=== PATIENT | male | born 1940 | race Caucasian/White ===

== ENCOUNTER 2018-07-11 08:12 | Inpatient (IN) | payer MEDICARE ==
[2018-07-11] VITALS (19 sets, daily range): BP systolic 97–149; BP diastolic 44–77
[~2018-07-11] VITALS: Ht 172.7 cm; Wt 103.0 kg
[~2018-07-11 08:12] MED LIST: ARICEPT10 MG PO; FEXOFENADINE180 MG PO; LISINOPRIL10 MG PO; METFORMIN500 MG PO; TYLENOL 325MG TAB PO; TYLENOL P1 PO
--- NOTE | 2018-07-11 08:25 | NUR ---
IV INITIATED AND LABS COLLECTED. [address] GIVEN PTS PAIN 10/10 AT THIS TIME.
--- NOTE | 2018-07-11 08:30 | NUR ---
PATIENT TO ROOM VIA WHEELCHAIR AND PHYSICIAN AT BEDSIDE FOR EVAL
--- NOTE | 2018-07-11 08:36 | NUR ---
BP 93/53 AFTER 2ND SL NITRO. PT REPORTS PAIN REMAINS 01/17. MD NOTIFIED.
[2018-07-11 08:43] LABS: HEMATOCRIT 46.5 % (39.0-50.0); HEMOGLOBIN 14.7 g/dl (14.0-18.0); IMMATURE GRANULOCYTES 0.6 % (0.0-5.0); MEAN CELL VOLUME 96.9 fL CALC (80.0-100.0); MEAN CORPUSCULAR HGB 30.6 pG CALC (26.0-32.0); MEAN CORPUSCULAR HGB CONC 31.6 g/L CALC (32.0-36.0); NEUT# 8.76 thou/uL (1.82-7.42); RED BLOOD COUNT 4.8 mill/uL (4.70-6.10); RED CELL DISTRI WIDTH 12.9 % (11.5-15.5)
--- NOTE | 2018-07-11 08:50 | NUR ---
PT REPORT'S A SHARP PAIN TO THE MIDSTERNAL AREA AT THIS TIME. MONITOR SHOWING, SINUS TACH AT A RATE OF 133 AT THIS TIME, LASTING APPROX 6 SECONDS. MD NOTIFIED.
--- NOTE | 2018-07-11 08:55 | NUR ---
PT HAD NUMEROUS RUNS OF SINUS TACHYCARDIA WITH INCREASED PAIN TO LEFT ANTERIOR CHEST. MD AGAIN NOTIFIED AND RHYTHM STRIP OBTAINED. PERIODS OF TACHYCARDIA LAST APPROX 6-10 SECONDS. BP 123/59.
[2018-07-11 09:08] LABS: ANION GAP 17 (6-22 (CALC)); BUN 11 mg/dL (8-23); BUN/CREATININE RATIO 17 (12-20 (CALC)); CARBON DIOXIDE 31 mmol/l (22-30); CHLORIDE 96 mmol/l (95-108); CREATININE 0.6 mg/dL (0.7-1.3); GFR > 60 ML/MIN (>=60 (CALC)); GFR FOR AFR.AMER. > 60 ML/MIN (>=60 (CALC)); POTASSIUM 3.8 mmol/l (3.5-5.1); SODIUM 140 mmol/l (137-146)
--- NOTE | 2018-07-11 09:20 | NUR ---
PT AND UNABLE TO RECONCILE MEDICATIONS AT THIS TIME. WILL BE GOING HOME AT THIS TIME FOR LIST OF MEDICATIONS.
--- NOTE | 2018-07-11 09:39 | NUR ---
PT LAUGHING AND TALKING WITH VISITOR. PT REPORTS PAIN IS NOW 3/10. MONITOR SHOWING SINUS AT A RATE 66. CALL ASNCHEZ WITHIN REACH.
--- NOTE | 2018-07-11 09:45 | NUR ---
REPORT TO HANNAH LICONA
[2018-07-11 10:01] LABS: PROTHROMBIN TIME 20.7 SECONDS (9.0-12.5)
[2018-07-11] MEDS ORDERED: WARFARIN2.5 MG PO (10:22)
[2018-07-11] MEDS ORDERED: NAMZARIC 28-101 CAP PO (10:24)
[2018-07-11] MEDS ORDERED: MUCINEX600 MG PO (10:24)
[2018-07-11] MEDS ORDERED: LASIX 40 MG40 MG/TAB PO (10:25)
[2018-07-11] MEDS ORDERED: ZYRTEC10 MG PO (10:25)
[2018-07-11] MEDS ORDERED: TYLENOL 500MG TAB PO (10:26)
[2018-07-11] MEDS ORDERED: COUMADIN5 MG PO (10:27)
--- NOTE | 2018-07-11 11:08 | NUR ---
PT READIED FOR DISPOSITION TO FLOOR. NO REPORT OF CHEST PAIN, STATES MINOR DISCOMFORT. AT BEDSIDE.
--- NOTE | 2018-07-11 11:34 | NUR ---
PT TRANSPORTED TO MS2 VIA STRETCHER ACCOMPIANED BY HANNAH LICONA. PT AMBULATED FROM STRETCHER TO BED W/ UNSTEADY GAIT. VS DONE. PT A/O X3. SPEECH IS CLEAR. RESP EVEN AND UNLABORED. LUNG SOUNDS CLEAR. PT DOES C/O CP 7 OUT OF 10 ON PAIN SCALE. RELAXATION TECHNIQUES IN PLACE. TELE IN PLACE. BOWEL SOUNDS ACTIVE X4. STRONG RADIAL AND PEDAL PULSES. #20 LAC SL. FLUSHED AND PATENT. SITE HEALTHY. SKIN INTACT. PT DENIES ANY FURTHER NEEDS. POC DISCUSSED. SAFETY PRECAUTIONS IN PLACE. CALL LIGHT IN REACH. BED ALARM ON. WILL CONTINUE TO MONITOR.
--- NOTE | 2018-07-11 11:38 | NUR ---
PT TAKEN TO ROOM 262 WITHOUT INCIDENT, REPORT WAS TO NICOLE.
--- NOTE | 2018-07-11 12:30 | NUR ---
CRAWLER TRACTOR OPERATOR CALLED IN REGARDS TO PT HR 160S. PT RESTING IN BED. PT STATES SLIGHT CHEST PAIN. MD MADE AWARE. PT TO BE TRANSFERRED TO ICU.
--- NOTE | 2018-07-11 13:10 | NUR ---
male pt received from Med Surg to ICU bed 3 via bed accompanied by Nirav Butler LPN in stable condition; bedside report received; assessment completed at this time; pt alert to person and place; confused to time; pt with complaints of left anterior chest pain/ nonradiating; rates pain 5/10; pt denies n/v/sob; no diaphoresis noted; resp even and unlabored; sob noted with exertion/ conversing; lungs clear; skin color wnl; o2 per nc at 2L; pump operator byproducts cough noted; hr irreg; strong pulses; sr/ occasional runs of svt on monitor; increase chest pain noted with tachycardia; abd soft with bs present; no bm noted per policy writer typist; no urine to inspect at this time; #20 flushed and patent to lac; no redness or edema noted at site; plan of care/ transfer explained; spouse to be notified per Nirav Sneed; bed alarm set for pt safety; RT at bedside to ekg; will continue to monitor
--- NOTE | 2018-07-11 13:40 | NUR ---
Dr Storm on phone speaking with spouse;
--- NOTE | 2018-07-11 14:15 | NUR ---
pt awake in bed; spouse present at bedside; sr/pac on monitor; hr 70s; iv intact; o2 per nc; plan of care explained; call light within reach; will continue to monitor
--- NOTE | 2018-07-11 15:50 | NUR ---
[id number] pt awake in bed; visitors present at bedside; pt offers no complaints; denies chest pain at current; sr 60s on monitor; pt assisted to wc; gait weak but steady; transferred to CT Scan via wc and portable o2; racebook writer accompained/ remains with pt for procedure; will continue to monitor
--- NOTE | 2018-07-11 16:15 | NUR ---
awake in bed; offers no complaints; iv patent; cardizem gtt infusing at 5mg/hr; no redness or edema noted at site; sr on monitor; o2 per nc; deny needs; offers no complaints of chest pain; call light within reach; will continue to monitor
--- NOTE | 2018-07-11 16:45 | NUR ---
multiple attempts to notify Dr Calvert made per radio script writer to office phone; Dr Storm informed; radio script writer will contact Dr Calvert via cell phone
--- NOTE | 2018-07-11 17:05 | NUR ---
Dr Calvert informed of consult via cell phone; admits to being out of town;
--- NOTE | 2018-07-11 18:04 | NUR ---
awake in bed; offers no complaints; no apparent distress noted; iv patent; cardizem gtt infusing at 5mg/hr; no redness or edema noted at site; o2 per nc; sr on monitor; call light within reach
--- NOTE | 2018-07-11 19:10 | NUR ---
awake watching tv. denies c/o. o2 cont per nc. paper folder shows sinus rhythm pacs pvcs ivcd. #20 lac cardizem gtt infusing @ 5cchr ns infusing @ 20cchr. po fluids taken well. voids per urinal. fall precautions cont.
--- NOTE | 2018-07-11 22:00 | NUR ---
watching tv. no distress. o2 cont.
[2018-07-12] VITALS (15 sets, daily range): BP systolic 93–140; BP diastolic 46–78
--- NOTE | 2018-07-12 00:05 | NUR ---
air sampling and monitoring shows sinus jonatan hr 56. cardizem gtt d/c'd.
--- NOTE | 2018-07-12 02:00 | NUR ---
resting quietly. no apparent distress. cardiac rehabilitation program director shows sinus jonatan pacs pvcs ivcd.
--- NOTE | 2018-07-12 04:00 | NUR ---
eyes closed. no distress. o2 cont.
--- NOTE | 2018-07-12 05:00 | NUR ---
lab here. blood drawn.
[2018-07-12 05:44] LABS: CHOLESTEROL HDL RATIO 3.5 (<4.4 (CALC))
[2018-07-12 05:46] LABS: HEMATOCRIT 42.5 % (39.0-50.0); HEMOGLOBIN 13.6 g/dl (14.0-18.0); IMMATURE GRANULOCYTES 1.5 % (0.0-5.0); MEAN CELL VOLUME 96.2 fL CALC (80.0-100.0); MEAN CORPUSCULAR HGB 30.8 pG CALC (26.0-32.0); NEUT# 8.16 thou/uL (1.82-7.42); RED BLOOD COUNT 4.42 mill/uL (4.70-6.10); RED CELL DISTRI WIDTH 12.9 % (11.5-15.5)
[2018-07-12 05:47] LABS: ALBUMIN 3.5 g/dL (3.2-5.0); ALKALINE PHOSPHATASE 49 u/l (38-126); AMYLASE < 30 u/l (30-110); ANION GAP 13 (6-22 (CALC)); BUN 10 mg/dL (8-23); BUN/CREATININE RATIO 19 (12-20 (CALC)); CARBON DIOXIDE 31 mmol/l (22-30); CHLORIDE 99 mmol/l (95-108); CREATININE 0.5 mg/dL (0.7-1.3); GFR > 60 ML/MIN (>=60 (CALC)); GFR FOR AFR.AMER. > 60 ML/MIN (>=60 (CALC)); LIPASE 55 u/l (23-300); MAGNESIUM 1.7 mg/dL (1.6-2.3); SGOT/AST 18 u/l (19-48); SODIUM 139 mmol/l (137-146); TOTAL PROTEIN 5.9 g/dL (6.3-8.2)
[2018-07-12 05:49] LABS: INTERNATIONAL NORMALIZED RATIO 2.5 RATIO (0.7-1.3); PROTHROMBIN TIME 25.9 SECONDS (9.0-12.5)
--- NOTE | 2018-07-12 06:00 | NUR ---
awake. watching tv. denies c/o.
--- NOTE | 2018-07-12 06:19 | NUR ---
hr has been as low as 48 this shift.
--- NOTE | 2018-07-12 07:10 | NUR ---
pt awake in bed; no apparent distress noted; pt offers no complaints; assessment completed at this time; pt alert and oriented; denies pain/ chest pain; no n/v/diaphoresis noted; resp even and unlabored; sob on exertion noted; lungs clear; skin color wnl; o2 per nc at 2L; colorer machine cough noted; hr irreg; strong pulses; trace pedal edema noted; sb/ pac on monitor; #20 in lac flushed and patent; no redness or edema noted at site; plan of care/ am meds explained; accucheck 152; call light within reach; will continue to monitor
--- NOTE | 2018-07-12 07:30 | NUR ---
assist to chair for breakfast
--- NOTE | 2018-07-12 08:00 | NUR ---
awake; offers no complaints; no apparent distress noted; remains up to chair; iv intact; sb pac/pvc on monitor; o2 per nc; call light within reach; will continue to monitor
--- NOTE | 2018-07-12 10:00 | NUR ---
awake in chair; no apparent distress noted; iv intact; no redness or edema noted at site; sb pac/pvc on monitor; o2 per nc; call light within reach; will continue to monitor
--- NOTE | 2018-07-12 10:55 | NUR ---
Dr Storm present at bedside to assess pt and discuss plan or care; pt alert and oriented; code status discussed with pt per Dr Storm; jingle writer at bedside to witness; pt admits to wanting everything done; living will reviewed at bedside with pt; awaiting spouse; will continue to monitor
--- NOTE | 2018-07-12 11:00 | NUR ---
spouse and daughter present at bedside; living will discuss with spouse including pt decision to be a full code; spouse ageeable; DNR order rescinded; will continue to monitor
--- NOTE | 2018-07-12 11:54 | NUR ---
awake in chair eating lunch; no apparent distress noted; pt offers no complaints; o2 per nc; sb on monitor; call light within reach; will continue to monitor
--- NOTE | 2018-07-12 14:05 | NUR ---
awake in chair; offers no complaints; no apparent distress noted; iv intact; visitors at bedside; sb pac/pvc on monitor; deny needs; o2 per nc; call light within reach; will continue to monitor
--- NOTE | 2018-07-12 14:35 | NUR ---
assisted back to bed; mod urinary incont noted; pt declined to remove underwear; urinal at bedside; will continue to monitor
--- NOTE | 2018-07-12 16:03 | NUR ---
resting in bed with eyes closed; no apparent distress noted; resp even and unlabored; iv intact; sb pac/pvc on monitor; o2 per nc; call light within reach; will continue to monitor
--- NOTE | 2018-07-12 18:05 | NUR ---
awake in bed; offers no complaints; denies needs; iv intact and patent; abt infusing without complication; no redness or edema noted at site; o2 per nc; sr on monitor; call light within reach
--- NOTE | 2018-07-12 19:20 | NUR ---
awake. watching ball game. denies chest pain. o2 cont per nc. media monitor shows sinus rhythm pacs pvcs ivcd. #20 lac saline lock. po fluids taken well. voids per urinal. fall precautions cont.
--- NOTE | 2018-07-12 22:00 | NUR ---
eyes closed. no distress. bus driver/monitor shows sinus rhythm pvcs ivcs.
[2018-07-13] VITALS (24 sets, daily range): BP systolic 77–114; BP diastolic 50–67
--- NOTE | 2018-07-13 00:01 | NUR ---
resting quietly. resps even & unlabored. no distress.
--- NOTE | 2018-07-13 02:25 | NUR ---
mantel craftsman shows a fib ivcd.
--- NOTE | 2018-07-13 04:00 | NUR ---
eyes closed. no distress. cafeteria monitor a fib ivcd pvcs.
--- NOTE | 2018-07-13 04:30 | NUR ---
lab here. blood drawn.
[2018-07-13 05:23] LABS: INTERNATIONAL NORMALIZED RATIO 1.9 RATIO (0.7-1.3); PROTHROMBIN TIME 19.8 SECONDS (9.0-12.5)
--- NOTE | 2018-07-13 06:00 | NUR ---
eyes closed. no distress. bed weight obtained
--- NOTE | 2018-07-13 07:10 | NUR ---
pt awake in bed; no apparent distress noted; pt offers no complaints; assessment completed at this time; pt alert and oriented to person and place; confused to month and year; denies pain/ chest pain; no n/v noted; resp even and unlabored; lungs clear; skin color wnl; o2 per nc; pure pak machine operator cough noted; hr irreg; strong pulses; trace pedal edema noted; afib on monitor; abd soft with bs present; no bm noted per telegraphic typewriter repairer; no urine to inspect at this time; urinal at bedside; #20 flushed and patent to lac; cardizem gtt infusing at 5mg/hr; no redness or edema noted at site; plan of care/am meds explained; call light within reach; will continue to monitor
--- NOTE | 2018-07-13 08:12 | NUR ---
awake in bed; offers no complaints; no apparent distress noted; iv intact and patent; cardizem gtt at 5mg/hr; afib on monitor; call light within reach; will continue to monitor
--- NOTE | 2018-07-13 10:07 | NUR ---
awake in bed; offers no complaints; no distress noted; resp even and unlabored; afib on monitor; iv patent; cardizem gtt infusing without complication; call light within reach; will continue to monitor
--- NOTE | 2018-07-13 10:40 | NUR ---
Dr Storm present at bedside to assess pt and discuss plan of care
--- NOTE | 2018-07-13 11:00 | NUR ---
cardizem weaned as per orders
--- NOTE | 2018-07-13 12:05 | NUR ---
awake in bed eating lunch; no apparent distress noted; pt offers no complaints; spouse present at bedside; afib on monitor; iv patent; abt infusing without complication; call light within reach; will continue to monitor
--- NOTE | 2018-07-13 12:19 | NUR ---
pt converted to sb 49
--- NOTE | 2018-07-13 14:00 | NUR ---
awake up to chair; spouse present at bedside; no apparent distress noted; pt offers no complaints; sb on monitor; o2 per nc; call light within reach; will continue to monitor
--- NOTE | 2018-07-13 14:48 | NUR ---
assisted back to bed;
--- NOTE | 2018-07-13 16:15 | NUR ---
pt awake in bed; offers no complaints; iv intact; sb on monitor; o2 per nc; pt deny needs; call light within reach; will continue to monitor
--- NOTE | 2018-07-13 17:59 | NUR ---
awake in bed eating dinner; no apparent distress noted; sb on monitor; o2 per nc; iv intact and patent with abt infusing without complication; no redness or edema noted at site; bed in lowest position; call light within reach
--- NOTE | 2018-07-13 19:30 | NUR ---
PT SITTING UP IN BED WATCHING TV. PT IS ALERT AND ORIENTED X3. SHIFT ASSESSMNET COMPLETED AT THIS TIME. IV PATENT X1. PLAN OF CARE REVIEWED WITH PATIENT. CALL LIGHT IN REACH. WILL CONTINUE TO MONITOR.
--- NOTE | 2018-07-13 22:00 | NUR ---
PT RESTING IN BED WATCHING TV. RESP ARE EVEN AND UNLABORED. NO DISTRESS NOTED. CALL LIGHT IN REACH. WILL CONITNUE TO MONITOR
--- NOTE | 2018-07-13 23:38 | NUR ---
PT RESTING IN BED AWAKE WATCHING TV. RESP ARE EVEN AND UNLABORED. NO DISTRESS NOTED. CALL LIGHT IN REACH. WILL CONTINUE TO MONITOR.
[2018-07-14 01:00] VITALS: BP 112/53
--- NOTE | 2018-07-14 02:00 | NUR ---
PT RESTING IN BED WITH EYES CLOSED. RESP ARE EVEN AND UNLABORED. NO DISTRESS NOTED. CALL LIGHT IN REACH. WILL CONTINUE TO MONITOR.
[2018-07-14 03:00] VITALS: BP 139/79
--- NOTE | 2018-07-14 03:54 | NUR ---
PT RESTING IN BED WITH EYES CLOSED. RESP ARE EVEN AND UNLABORED. NO DISTRESS NOTED. CALL LIGHT IN REACH. WILL CONTINUE TO MONITOR.
--- NOTE | 2018-07-14 04:12 | NUR ---
DYE RANGE OPERATOR AT BEDSIDE TO DRAW AM LABS
[2018-07-14 04:25] LABS: HEMATOCRIT 44.6 % (39.0-50.0); HEMOGLOBIN 13.6 g/dl (14.0-18.0); IMMATURE GRANULOCYTES 0.6 % (0.0-5.0); MEAN CELL VOLUME 99.1 fL CALC (80.0-100.0); MEAN CORPUSCULAR HGB 30.2 pG CALC (26.0-32.0); MEAN CORPUSCULAR HGB CONC 30.5 g/L CALC (32.0-36.0); NEUT# 6.65 thou/uL (1.82-7.42); RED BLOOD COUNT 4.5 mill/uL (4.70-6.10); RED CELL DISTRI WIDTH 13.2 % (11.5-15.5)
[2018-07-14 04:38] LABS: ALBUMIN 3.3 g/dL (3.2-5.0); ALKALINE PHOSPHATASE 47 u/l (38-126); ANION GAP 10 (6-22 (CALC)); BILIRUBIN, TOTAL 0.6 mg/dL (0.0-1.4); BUN 12 mg/dL (8-23); BUN/CREATININE RATIO 16 (12-20 (CALC)); CARBON DIOXIDE 36 mmol/l (22-30); CHLORIDE 99 mmol/l (95-108); CREATININE 0.7 mg/dL (0.7-1.3); GFR > 60 ML/MIN (>=60 (CALC)); GFR FOR AFR.AMER. > 60 ML/MIN (>=60 (CALC)); MAGNESIUM 1.9 mg/dL (1.6-2.3); POTASSIUM 4.3 mmol/l (3.5-5.1); SGOT/AST 15 u/l (19-48); SODIUM 140 mmol/l (137-146); TOTAL PROTEIN 5.8 g/dL (6.3-8.2)
[2018-07-14 04:42] LABS: INTERNATIONAL NORMALIZED RATIO 2.1 RATIO (0.7-1.3); PROTHROMBIN TIME 21.6 SECONDS (9.0-12.5)
[2018-07-14 05:00] VITALS: BP 132/66
--- NOTE | 2018-07-14 05:55 | NUR ---
PT SITTING UP IN BED WATCHING TV. RESP ARE EVEN AND UNLAORED. NO DISTRESS NOTED. CALL LIGHT IN REACH. WILL CONTINUE OT MONITOR.
--- NOTE | 2018-07-14 07:40 | NUR ---
ASSESSMENT IS COMPLETED: IV SITE IS FREE FROM REDNESS OR EDEMA. HR IS REG,PULSES ARE STRONG X4, ABD IS SOFT WITH ACTIVE BS. BREATH SOUNDS ARE CLEAR AND SLIGHT WHEEZE IN LOWER. O2 @ 2LITERS WITH NC. NO DISTRESS NOTED. CONTINUE TO OSBERVE AND MONITOR. CALL SANCHEZ WITHIN REACH/
--- NOTE | 2018-07-14 10:00 | NUR ---
PT SITTING IN THE CHAIR NO DISTRESS NOTED,. IV SITE DISCONTINUED CATHETER INTACT.
[2018-07-14] MEDS ORDERED: LANOXIN0.125 MG PO (10:48)
--- NOTE | 2018-07-14 11:17 | NUR ---
IV SITE DISCONTINUED CATHETER INTACT NO REDNESS OR EDEMA. FAMILY IN THE ROOM;. WAITING ON DISCHARGE INSTRUCTIONS.
[2018-07-14 11:34] VITALS: BP 123/61
--- NOTE | 2018-07-14 11:38 | NUR ---
DISCHARGE INSTRUCTIONS GIVEN TO SPOUSE AND PT. VERBALIZED UNDERSTANDING. ABLE TO AMBULATE TO THE WITHOUT DIFFICULTY. Discharge instructions given. Patient verbalizes understanding of same. Discharged in stable condition via Wheelchair to Home with family. All belongings sent with pt.
== END 2018-07-14 11:35 | disposition home or self-care (01) | DRG 310 ==
LOC: ED 08:12 → ED-I 10:04 → ED 10:17 → MS2 10:18 → ICU 13:15
PROVIDERS: Family Medicine; ADMIT Internal Medicine Nephrology; ATTEND Internal Medicine Nephrology
DX: I48.0 Paroxysmal atrial fibrillation (principal); I48.92 Unspecified atrial flutter; E11.9 Type 2 diabetes mellitus without complications; I10 Essential (primary) hypertension; I25.10 Atherosclerotic heart disease of native coronary artery without angina pectoris; M45.9 Ankylosing spondylitis of unspecified sites in spine; Z79.4 Long term (current) use of insulin; Z79.52 Long term (current) use of systemic steroids; Z79.01 Long term (current) use of anticoagulants; Z86.718 Personal history of other venous thrombosis and embolism; Z86.711 Personal history of pulmonary embolism
CPT/HCPCS: J1160; Q9967

== ENCOUNTER → 2018-07-29 | Outpatient (REF) | payer MEDICARE ==
[~2018-07-29] MED LIST changes: +COUMADIN5 MG PO; +LANOXIN0.125 MG PO; +LASIX 40 MG40 MG/TAB PO; +MUCINEX600 MG PO; +NAMZARIC 28-101 CAP PO; +TYLENOL 500MG TAB PO; +WARFARIN2.5 MG PO; +ZYRTEC10 MG PO
[2018-07-29 09:39] LABS: INTERNATIONAL NORMALIZED RATIO 2.3 RATIO (0.7-1.3); PROTHROMBIN TIME 23.9 SECONDS (9.0-12.5)
[2018-07-29 09:51] LABS: ALBUMIN 3.8 g/dL (3.2-5.0); ALKALINE PHOSPHATASE 54 u/l (38-126); ANION GAP 15 (6-22 (CALC)); BILIRUBIN, TOTAL 0.4 mg/dL (0.0-1.4); BUN 16 mg/dL (8-23); BUN/CREATININE RATIO 19 (12-20 (CALC)); CARBON DIOXIDE 34 mmol/l (22-30); CHLORIDE 95 mmol/l (95-108); CREATININE 0.8 mg/dL (0.7-1.3); GFR > 60 ML/MIN (>=60 (CALC)); GFR FOR AFR.AMER. > 60 ML/MIN (>=60 (CALC)); POTASSIUM 4.6 mmol/l (3.5-5.1); SGOT/AST 21 u/l (19-48); SODIUM 141 mmol/l (137-146); TOTAL PROTEIN 6.5 g/dL (6.3-8.2)
[2018-07-29 09:54] LABS: HEMATOCRIT 45.2 % (39.0-50.0); HEMOGLOBIN 14.2 g/dl (14.0-18.0); IMMATURE GRANULOCYTES 0.9 % (0.0-5.0); MEAN CELL VOLUME 97.2 fL CALC (80.0-100.0); MEAN CORPUSCULAR HGB 30.5 pG CALC (26.0-32.0); MEAN CORPUSCULAR HGB CONC 31.4 g/L CALC (32.0-36.0); NEUT# 5.85 thou/uL (1.82-7.42); RED BLOOD COUNT 4.65 mill/uL (4.70-6.10)
[2018-07-29 11:53] LABS: DIGOXIN < 0.4 ng/mL (0.8-2.0)
== END | disposition home or self-care (01) ==
LOC: LAB 08:50
PROVIDERS: ATTEND Internal Medicine
DX: I48.0 Paroxysmal atrial fibrillation (principal); Z79.899 Other long term (current) drug therapy

== ENCOUNTER 2023-03-11 13:40 | Inpatient (IN) | payer MEDICARE ==
[~2023-03-11] VITALS: Ht 172.7 cm; Wt 107.8 kg
[2023-03-11] VITALS (10 sets, daily range): BP systolic 106–143; BP diastolic 54–116
[2023-03-11 14:15] LABS: URINE BLOOD DIPSTICK Moderate (NEGATIVE); URINE GLUCOSE - DIPSTICK Negative (NEGATIVE); URINE KETONE Trace mg/dL (NEGATIVE); URINE NITRITE - DIPSTICK Negative (Negative); URINE PROTEIN - DIPSTICK 100 mg/dL (NEG-TRACE); URINE SPECIFIC GRAVITY 1.015
[2023-03-11 14:16] LABS: BASO% 0.1 % (0-3); EOS% 0.1 % (0-8); HEMATOCRIT 45.5 % (39.0-50.0); HEMOGLOBIN 14.2 g/dl (14.0-18.0); IMMATURE GRANULOCYTES 0.6 % (0.0-5.0); MEAN CELL VOLUME 102.7 fL CALC (80.0-100.0); MEAN CORPUSCULAR HGB 32.1 pG CALC (26.0-32.0); MEAN CORPUSCULAR HGB CONC 31.2 g/dL CAL (32.0-36.0); NEUT# 15.24 thou/uL (1.82-7.42); NEUT% 83.2 % (42-76); RED BLOOD COUNT 4.43 mill/uL (4.70-6.10); RED CELL DISTRI WIDTH 12.2 % (11.5-15.5)
[2023-03-11 14:17] LABS: URINE COLOR Yellow; URINE LEUK ESTERASE Small (NEGATIVE)
[2023-03-11 14:22] LABS: URINE BACTERIA FEW hpf; URINE SQUAMOUS EPITHELIAL CELL FEW EPI/hpf (0-FEW); URINE WBC 50-100 WBC/hpf (0-5)
[2023-03-11 14:24] LABS: ALKALINE PHOSPHATASE 48 u/l (38-126); ANION GAP 12 (6-22 (CALC)); BUN 19 mg/dL (8-23); BUN/CREATININE RATIO 17 (12-20 (CALC)); CARBON DIOXIDE 31 mmol/l (22-30); CHLORIDE 97 mmol/l (95-108); CREATININE 1.1 mg/dL (0.7-1.3); GFR FOR AFR.AMER. > 60 ML/MIN (>=60 (CALC)); GFR OTHER RACES > 60 ML/MIN (>=60 (CALC)); POTASSIUM 4.7 mmol/l (3.5-5.1); SGOT/AST 37 u/l (19-48); SODIUM 136 mmol/l (137-146); TOTAL PROTEIN 7.3 g/dL (6.3-8.2)
[2023-03-11] MEDS ORDERED: TOPROL XL25 M1 PO (15:59)
[2023-03-11] MEDS ORDERED: XARELTO20 MG PO (15:59)
[2023-03-11 16:05] LABS: INTERNATIONAL NORMALIZED RATIO 1.2 RATIO (0.7-1.3); PROTHROMBIN TIME 10.9 SECONDS (9.0-12.5)
[2023-03-12 04:47] VITALS: BP 106/49
[2023-03-12 05:16] LABS: BASO% 0.1 % (0-3); EOS% 0.1 % (0-8); HEMATOCRIT 41.7 % (39.0-50.0); IMMATURE GRANULOCYTES 0.5 % (0.0-5.0); LYMPH% 9.7 % (15-41); MEAN CELL VOLUME 104.3 fL CALC (80.0-100.0); MEAN CORPUSCULAR HGB 32.5 pG CALC (26.0-32.0); MEAN CORPUSCULAR HGB CONC 31.2 g/dL CAL (32.0-36.0); MONO% 9.7 % (2-13); NEUT# 13.73 thou/uL (1.82-7.42); NEUT% 79.9 % (42-76); RED CELL DISTRI WIDTH 12.3 % (11.5-15.5)
[2023-03-12 05:50] LABS: ALKALINE PHOSPHATASE 45 u/l (38-126); ANION GAP 10 (6-22 (CALC)); BILIRUBIN, TOTAL 0.7 mg/dL (0.2-1.3); BUN 17 mg/dL (8-23); BUN/CREATININE RATIO 18 (12-20 (CALC)); CALCULATED LDLCHOLESTEROL 54 mg/dL (62-129 (CALC)); CARBON DIOXIDE 29 mmol/l (22-30); CHLORIDE 102 mmol/l (95-108); CHOLESTEROL HDL RATIO 2.5 (<4.4 (CALC)); CREATININE 0.9 mg/dL (0.7-1.3); GFR FOR AFR.AMER. > 60 ML/MIN (>=60 (CALC)); GFR OTHER RACES > 60 ML/MIN (>=60 (CALC)); HDL CHOLESTEROL 44 mg/dL (39.0-59.0); MAGNESIUM 1.5 mg/dL (1.6-2.3); SGOT/AST 25 u/l (19-48); SODIUM 136 mmol/l (137-146); TOTAL TRIGLYCERIDES 57 mg/dl (0-149); VLDL CHOLESTROL 11 mg/dl (0-38 (CALC))
[2023-03-12 05:54] LABS: TOTAL CHOLESTEROL 109 mg/dl (0-199); TOTAL PROTEIN 5.5 g/dL (6.3-8.2)
[2023-03-12 06:28] VITALS: BP 98/43
[2023-03-12 12:34] VITALS: BP 96/49
[2023-03-12 15:52] VITALS: BP 116/42
[2023-03-12 19:00] VITALS: BP 125/61
[2023-03-13 00:05] VITALS: BP 123/53
[2023-03-13 04:28] VITALS: BP 130/58
[2023-03-13 05:27] LABS: BASO% 0.1 % (0-3); EOS% 0.6 % (0-8); HEMATOCRIT 41.7 % (39.0-50.0); HEMOGLOBIN 12.9 g/dl (14.0-18.0); IMMATURE GRANULOCYTES 1.1 % (0.0-5.0); LYMPH% 11.1 % (15-41); MEAN CELL VOLUME 105.3 fL CALC (80.0-100.0); MEAN CORPUSCULAR HGB 32.6 pG CALC (26.0-32.0); MEAN CORPUSCULAR HGB CONC 30.9 g/dL CAL (32.0-36.0); MONO% 11.2 % (2-13); NEUT# 10.93 thou/uL (1.82-7.42); NEUT% 75.9 % (42-76); RED BLOOD COUNT 3.96 mill/uL (4.70-6.10); RED CELL DISTRI WIDTH 12.3 % (11.5-15.5)
[2023-03-13 05:42] LABS: ALBUMIN 3.1 g/dL (3.2-5.0); ALKALINE PHOSPHATASE 54 u/l (38-126); ANION GAP 11 (6-22 (CALC)); BILIRUBIN, TOTAL 0.5 mg/dL (0.2-1.3); BUN 15 mg/dL (8-23); BUN/CREATININE RATIO 17 (12-20 (CALC)); CARBON DIOXIDE 28 mmol/l (22-30); CHLORIDE 103 mmol/l (95-108); CREATININE 0.9 mg/dL (0.7-1.3); GFR FOR AFR.AMER. > 60 ML/MIN (>=60 (CALC)); GFR OTHER RACES > 60 ML/MIN (>=60 (CALC)); MAGNESIUM 1.7 mg/dL (1.6-2.3); POTASSIUM 4.3 mmol/l (3.5-5.1); SGOT/AST 27 u/l (19-48); SODIUM 137 mmol/l (137-146); TOTAL PROTEIN 5.6 g/dL (6.3-8.2)
[2023-03-13 09:06] VITALS: BP 122/53
[2023-03-13 10:54] VITALS: BP 124/57
[2023-03-13 15:36] VITALS: BP 125/66
[2023-03-13 20:26] VITALS: BP 114/63
[2023-03-14] VITALS (8 sets, daily range): BP systolic 118–131; BP diastolic 50–69
[2023-03-14 05:52] LABS: BASO% 0.2 % (0-3); EOS% 0.8 % (0-8); HEMATOCRIT 40.9 % (39.0-50.0); HEMOGLOBIN 12.9 g/dl (14.0-18.0); IMMATURE GRANULOCYTES 1.4 % (0.0-5.0); LYMPH% 13.9 % (15-41); MEAN CELL VOLUME 105.1 fL CALC (80.0-100.0); MEAN CORPUSCULAR HGB 33.2 pG CALC (26.0-32.0); MEAN CORPUSCULAR HGB CONC 31.5 g/dL CAL (32.0-36.0); MONO% 11.2 % (2-13); NEUT# 8.55 thou/uL (1.82-7.42); NEUT% 72.5 % (42-76); RED BLOOD COUNT 3.89 mill/uL (4.70-6.10); RED CELL DISTRI WIDTH 11.9 % (11.5-15.5)
[2023-03-14 06:05] LABS: ALBUMIN 3.2 g/dL (3.2-5.0); ALKALINE PHOSPHATASE 56 u/l (38-126); ANION GAP 10 (6-22 (CALC)); BILIRUBIN, TOTAL 0.6 mg/dL (0.2-1.3); BUN 14 mg/dL (8-23); BUN/CREATININE RATIO 16 (12-20 (CALC)); CARBON DIOXIDE 32 mmol/l (22-30); CHLORIDE 97 mmol/l (95-108); CREATININE 0.9 mg/dL (0.7-1.3); GFR FOR AFR.AMER. > 60 ML/MIN (>=60 (CALC)); GFR OTHER RACES > 60 ML/MIN (>=60 (CALC)); MAGNESIUM 1.7 mg/dL (1.6-2.3); POTASSIUM 4.1 mmol/l (3.5-5.1); SGOT/AST 32 u/l (19-48); SODIUM 135 mmol/l (137-146); TOTAL PROTEIN 5.9 g/dL (6.3-8.2)
[2023-03-15 03:46] VITALS: BP 121/59
[2023-03-15 05:55] LABS: BASO% 0.2 % (0-3); EOS% 1.4 % (0-8); HEMATOCRIT 43.4 % (39.0-50.0); HEMOGLOBIN 13.5 g/dl (14.0-18.0); IMMATURE GRANULOCYTES 2.9 % (0.0-5.0); LYMPH% 13.6 % (15-41); MEAN CELL VOLUME 105.3 fL CALC (80.0-100.0); MEAN CORPUSCULAR HGB 32.8 pG CALC (26.0-32.0); MEAN CORPUSCULAR HGB CONC 31.1 g/dL CAL (32.0-36.0); MONO% 11.9 % (2-13); NEUT# 7.33 thou/uL (1.82-7.42); RED BLOOD COUNT 4.12 mill/uL (4.70-6.10); RED CELL DISTRI WIDTH 11.8 % (11.5-15.5)
[2023-03-15 06:09] LABS: ALBUMIN 3.3 g/dL (3.2-5.0); ALKALINE PHOSPHATASE 55 u/l (38-126); ANION GAP 11 (6-22 (CALC)); BILIRUBIN, TOTAL 0.4 mg/dL (0.2-1.3); BUN 17 mg/dL (8-23); BUN/CREATININE RATIO 19 (12-20 (CALC)); CARBON DIOXIDE 33 mmol/l (22-30); CHLORIDE 99 mmol/l (95-108); CREATININE 0.9 mg/dL (0.7-1.3); GFR FOR AFR.AMER. > 60 ML/MIN (>=60 (CALC)); GFR OTHER RACES > 60 ML/MIN (>=60 (CALC)); MAGNESIUM 1.9 mg/dL (1.6-2.3); POTASSIUM 4.3 mmol/l (3.5-5.1); SGOT/AST 32 u/l (19-48); SODIUM 139 mmol/l (137-146); TOTAL PROTEIN 6.2 g/dL (6.3-8.2)
[2023-03-15 07:01] VITALS: BP 118/61
[2023-03-15 10:42] VITALS: BP 113/60
[2023-03-15] MEDS ORDERED: BACTRIM DS1 TAB PO (12:23)
== END 2023-03-15 14:25 | DRG 872 ==
LOC: ED 13:40 → MS2 15:48
PROVIDERS: Family Medicine; Nurse Practitioner; Nurse Practitioner Family; ADMIT Student in an Organized Health Care Education/Training Program; ATTEND Student in an Organized Health Care Education/Training Program
DX: A41.9 Sepsis, unspecified organism (principal); N39.0 Urinary tract infection, site not specified; J96.11 Chronic respiratory failure with hypoxia; I10 Essential (primary) hypertension; E11.9 Type 2 diabetes mellitus without complications; J44.9 Chronic obstructive pulmonary disease, unspecified; I48.0 Paroxysmal atrial fibrillation; I25.10 Atherosclerotic heart disease of native coronary artery without angina pectoris; B96.4 Proteus (mirabilis) (morganii) as the cause of diseases classified elsewhere; Z86.711 Personal history of pulmonary embolism; Z79.84 Long term (current) use of oral hypoglycemic drugs; Z99.81 Dependence on supplemental oxygen; Z79.01 Long term (current) use of anticoagulants; Z66 Do not resuscitate; Z20.822 Contact with and (suspected) exposure to COVID-19
CPT/HCPCS: J3475